=== PATIENT | male | born 1945 | race Caucasian/White ===

== ENCOUNTER → 2017-10-04 | Outpatient (CLI) | payer MEDICARE, OTHER ==
[~2017-10-04] MED LIST: ALPR.5 PO; ASPI325EC PO; CIPRSO OS; CLOP75 PO; HYDACE5 PO; Norco 5-325 Ta1 EACH PO; PANT20 PO; PROP10 PO; ROSU10TA PO
== END ==
LOC: LAB SHORT 07:55 → LAB 07:55
DX: D48.5 Neoplasm of uncertain behavior of skin (principal)
CPT/HCPCS: 88305

== ENCOUNTER 2018-12-21 15:04 | Emergency (ER) | payer MEDICARE, OTHER ==
[~2018-12-21] VITALS: Ht 177.8 cm; Wt 81.7 kg
== END 2018-12-21 17:15 | disposition home or self-care (01) ==
LOC: ER 15:04
DX: T83.091A Other mechanical complication of indwelling urethral catheter, initial encounter (principal); Z91.010 Allergy to peanuts; Z88.8 Allergy status to other drugs, medicaments and biological substances; Z79.899 Other long term (current) drug therapy; Z79.82 Long term (current) use of aspirin
CPT/HCPCS: 51798; 99283-25

== ENCOUNTER 2019-07-20 22:01 | Observation (INO) | payer MEDICARE, OTHER ==
[~2019-07-20] VITALS: Ht 177.8 cm; Wt 87.0 kg
[~2019-07-20 22:01] MED LIST changes: -ACET325 PO; -AMOCLA875 PO; -CENTRUM SILVER1 EAC2 PO; -CO Q10200 MG PO; -DOCU100 PO; -Florastor250 MG PO; -IBUP600 PO; -MELATONIN5 M1 PO; -MIRALAX17 GM PO; -Metamucil0.52 GM PO; -THERA-D2000 UNIT PO; -[UNRECOGNIZED DRUG - OTHER] PO
--- NOTE | 2019-07-20 23:49 | NUR ---
transfer report from Keila CHANG in ER on PT being admitted with lt hand cat bite . Bit by own cat per report and has edema redness despite iv antibiotic and oral antibiotic one dose. Await admission of OBS PT.
[2019-07-21] MEDS ORDERED: AMOCLA875 PO (00:31)
[2019-07-21] MEDS ORDERED: IBUP600 PO (00:32)
[2019-07-21] MEDS ORDERED: MIRALAX17 GM PO (00:33)
[2019-07-21] MEDS ORDERED: Metamucil0.52 GM PO (00:34)
[2019-07-21] MEDS ORDERED: [UNRECOGNIZED DRUG - OTHER] PO (00:36)
[2019-07-21] MEDS ORDERED: PANT20 PO (00:38)
[2019-07-21] MEDS ORDERED: MELATONIN5 M1 PO (00:39)
[2019-07-21] MEDS ORDERED: CENTRUM SILVER1 EAC2 PO (00:51)
[2019-07-21] MEDS ORDERED: THERA-D2000 UNIT PO (00:53)
[2019-07-21] MEDS ORDERED: DOCU100 PO (00:55)
[2019-07-21] MEDS ORDERED: CO Q10200 MG PO (01:00)
[2019-07-21 05:28] LABS: BASOPHILS ABSOLUTE AUTO 0.05 K/mm3 (0.00-0.23); BASOPHILS PERCENT AUTO 1 % (0-2); EOSINOPHILS ABSOLUTE AUTO 0.24 K/mm3 (0.00-0.68); EOSINOPHILS PERCENT AUTO 2 % (0-6); IMMATURE GRAN ABSOLUTE AUTO 0.04 K/mm3 (0.00-0.10); IMMATURE GRAN PERCENT AUTO 0 % (0-1); LYMPHOCYTES ABSOLUTE AUTO 1.95 K/mm3 (0.84-5.20); LYMPHOCYTES PERCENT AUTO 18 % (21-46); MONOCYTES ABSOLUTE AUTO 0.96 K/mm3 (0.16-1.47); MONOCYTES PERCENT AUTO 9 % (4-13); Mean Corpuscular HGB 33.5 pg (26.0-34.0); Mean Corpuscular HGB Conc 33.3 g/dL (31.5-36.5); Mean Platelet Volume 9.5 fL (9.1-12.4); NEUTROPHILS ABSOLUTE AUTO 7.59 K/mm3 (1.96-9.15); NEUTROPHILS PERCENT AUTO 70 % (41-73); Platelet Count 188 K/mm3 (150-400); RDW Coefficient Variation 11.9 % (11.7-14.2); RDW Standard Deviation 43.5 fL (35.1-46.3); Red Blood Cell Count 3.58 M/mm3 (4.30-5.90); White Blood Cell Count 10.83 K/mm3 (4.00-11.30)
[2019-07-21 05:33] LABS: Mean Corpuscular Volume 101 fL (80-100)
--- NOTE | 2019-07-21 08:13 | NUR ---
PT admitted with cat bite cellulitis lt hand and started on IV ABX at urgent care and sent home on augmentin which was taken around noon. PT admitted to square dancing with injured lt hand for 2.5 hours but then noted red streak running up lt arm. Redness diminishing and slight decreased edema this AM after zosyn abx given. PT encouraged to keep lt ue elevated above heart level
--- NOTE | 2019-07-21 13:59 | NUR ---
SPOKE TO DR BOBO AT 1350, AFTER HE HAD VISITED WITH PATIENT. ASKED FOR ORDERS OF BOWEL CARE PER PATIENT REQUEST. VERBAL ORDERS OBTAINED AND ENTERED TO EM[facility].
--- NOTE | 2019-07-21 15:54 | NUR ---
SHIFT SUMMARY THE PATIENT HAS HAD AN UNEVENTFUL SHIFT. DENIES PAIN OR DISCOMFORT. VITALS REMAIN STABLE. CALLS FOR STAFF ASSIST APPROPRIATELY. CONTINUES ON IV ABX WITHOUT S/SX OF ADVERSE REACTIONS NOTED OR REPORTED. CONDITION OF LEFT HAND HAS NOT WORSENED. NO ACUTE CHANGES TO REPORT ON AT THIS TIME. WILL CONTINUE TO MONITOR AND PROVIDE CARE NEEDED.
--- NOTE | 2019-07-21 22:50 | NUR ---
PT continues with mild lt forearm pink streak from catbite punctures to lt hand and lt thumb. PT has been elevating lt arm and hand above heart level more consistantly. Minimal pain lt hand some tenderness with pressure to lt thumb area. Denies need for pain med. Bites are dry with small scabs present. Decreased redness and warmth to area. Bowel care given at HS for chronic constipation. no fevers noted continues on IV antibiotics for cellulitis.
--- NOTE | 2019-07-22 03:34 | NUR ---
bedside report to Rashida RN who assumed care of PT. LT arm red streak greatly diminished from admission. PT denies acute pain. Alcohol gel used at bedside and applied after PT touching cat bite puncture site lt thumb area. Most of lt hand edema gone CMS good. Cellulitis and animal bite PT education provided.
[2019-07-22 04:40] LABS: BASOPHILS ABSOLUTE AUTO 0.04 K/mm3 (0.00-0.23); BASOPHILS PERCENT AUTO 0 % (0-2); EOSINOPHILS ABSOLUTE AUTO 0.28 K/mm3 (0.00-0.68); EOSINOPHILS PERCENT AUTO 3 % (0-6); Hematocrit 35.6 % (37.0-53.0); IMMATURE GRAN ABSOLUTE AUTO 0.03 K/mm3 (0.00-0.10); IMMATURE GRAN PERCENT AUTO 0 % (0-1); LYMPHOCYTES ABSOLUTE AUTO 2.15 K/mm3 (0.84-5.20); LYMPHOCYTES PERCENT AUTO 22 % (21-46); MONOCYTES ABSOLUTE AUTO 0.88 K/mm3 (0.16-1.47); MONOCYTES PERCENT AUTO 9 % (4-13); Mean Corpuscular HGB 32.8 pg (26.0-34.0); Mean Corpuscular HGB Conc 33.7 g/dL (31.5-36.5); Mean Platelet Volume 9.2 fL (9.1-12.4); NEUTROPHILS ABSOLUTE AUTO 6.55 K/mm3 (1.96-9.15); NEUTROPHILS PERCENT AUTO 66 % (41-73); Platelet Count 203 K/mm3 (150-400); RDW Coefficient Variation 11.9 % (11.7-14.2); RDW Standard Deviation 42.5 fL (35.1-46.3); Red Blood Cell Count 3.66 M/mm3 (4.30-5.90); White Blood Cell Count 9.93 K/mm3 (4.00-11.30)
[2019-07-22 04:44] LABS: Mean Corpuscular Volume 97 fL (80-100)
[2019-07-22 05:06] LABS: Albumin, Blood 3.1 g/dL (3.4-5.0); Albumin/Globulin Ratio 0.9 (0.8-1.8); Bilirubin, Total 0.4 mg/dL (0.1-1.0); Bun/Creatinine Ratio 18.3 (12.0-20.0); Calcium, Blood 8.4 mg/dL (8.5-10.1); Creatinine, Blood 1.26 mg/dL (0.60-1.20); Globulin, Blood 3.6 g/dL (2.2-4.0); Total Protein, Blood 6.7 g/dL (6.4-8.2)
[2019-07-22] MEDS ORDERED: ACET325 PO (10:39)
[2019-07-22] MEDS ORDERED: Florastor250 MG PO (10:41)
--- NOTE | 2019-07-22 11:19 | NUR ---
DISCHARGE SUMMARY PT DENIES PAIN, HAND MUCH LESS SWOLLEN, REDNESS RESOLVED. PIV REMOVED, PAPERWORK GONE OVER, MEDS FAXED TO [facility]. PT DECLINES US TO MAKE PCP APPOINTMENT, HE WANTS TO MAKE IT HIMSELF WHEN HE GETS HOME AND HAS HIS SCHEDULE. WILL PICK HIM UP SHORTLY.
== END 2019-07-22 11:30 | disposition home or self-care (01) ==
LOC: ER 22:01 → MEDS 22:02 → ENPENDDIS 07-22 09:49 → MEDS 07-22 11:30
PROVIDERS: Family Medicine; ADMIT Hospitalist
DX: S41.152A Open bite of left upper arm, initial encounter (principal); L03.114 Cellulitis of left upper limb; I25.10 Atherosclerotic heart disease of native coronary artery without angina pectoris; Z95.5 Presence of coronary angioplasty implant and graft; Z91.010 Allergy to peanuts; Z91.09 Other allergy status, other than to drugs and biological substances; Z88.2 Allergy status to sulfonamides; Z79.02 Long term (current) use of antithrombotics/antiplatelets; W55.01XA Bitten by cat, initial encounter; Z23 Encounter for immunization
CPT/HCPCS: 36415; 73120; 80053; 85025; 87040; 90686; 96365; 96366; 96372; 96376; 99284-25; G0008; G0378; J1650; J2543; J7050

== ENCOUNTER → 2019-07-20 | Outpatient (CLI) | payer MEDICARE, OTHER ==
[~2019-07-20] MED LIST changes: +ACET325 PO; +AMOCLA875 PO; -ASPI325EC PO; +Aspir 8181 MG; +CENTRUM SILVER1 EAC2 PO; +CO Q10200 MG PO; +DOCU100 PO; +Florastor250 MG PO; +IBUP600 PO; +MELATONIN5 M1 PO; +MIRALAX17 GM PO; +Metamucil0.52 GM PO; +THERA-D2000 UNIT PO; +[UNRECOGNIZED DRUG - OTHER] PO
[2019-07-20 12:02] LABS: BASOPHILS ABSOLUTE AUTO 0.06 K/mm3 (0.00-0.23); BASOPHILS PERCENT AUTO 0 % (0-2); EOSINOPHILS ABSOLUTE AUTO 0.06 K/mm3 (0.00-0.68); EOSINOPHILS PERCENT AUTO 0 % (0-6); Hematocrit 42.8 % (37.0-53.0); Hemoglobin 14.6 g/dL (13.5-17.5); IMMATURE GRAN ABSOLUTE AUTO 0.09 K/mm3 (0.00-0.10); IMMATURE GRAN PERCENT AUTO 1 % (0-1); LYMPHOCYTES ABSOLUTE AUTO 1.42 K/mm3 (0.84-5.20); LYMPHOCYTES PERCENT AUTO 9 % (21-46); MONOCYTES ABSOLUTE AUTO 0.94 K/mm3 (0.16-1.47); MONOCYTES PERCENT AUTO 6 % (4-13); Mean Corpuscular HGB 32.8 pg (26.0-34.0); Mean Corpuscular HGB Conc 34.1 g/dL (31.5-36.5); Mean Corpuscular Volume 96 fL (80-100); Mean Platelet Volume 9.4 fL (9.1-12.4); NEUTROPHILS ABSOLUTE AUTO 12.82 K/mm3 (1.96-9.15); NEUTROPHILS PERCENT AUTO 83 % (41-73); Platelet Count 274 K/mm3 (150-400); RDW Coefficient Variation 11.9 % (11.7-14.2); RDW Standard Deviation 41.5 fL (35.1-46.3); Red Blood Cell Count 4.45 M/mm3 (4.30-5.90); White Blood Cell Count 15.39 K/mm3 (4.00-11.30)
[2019-07-20 12:15] LABS: Alanine Aminotransfer (ALT/SGP 32 U/L (12-78); Albumin, Blood 4.1 g/dL (3.4-5.0); Albumin/Globulin Ratio 1.1 (0.8-1.8); Alk Phos 85 U/L (50-136); Anion Gap 8 mmol/L (6-16); Aspartate Aminotrans (AST/SGOT 23 U/L (12-37); Bilirubin, Total 0.6 mg/dL (0.1-1.0); Blood Urea Nitrogen 26 mg/dL (8-24); CO2, Blood 27 mmol/L (21-32); Calcium, Blood 8.8 mg/dL (8.5-10.1); Chloride, Blood 105 mmol/L (98-108); Creatinine, Blood 1.18 mg/dL (0.60-1.20); Globulin, Blood 3.9 g/dL (2.2-4.0); Glomerular Filtration Rate >60 (60-); Glucose, Blood 134 mg/dL (70-99); Potassium, Blood 4.1 mmol/L (3.5-5.5); Sodium, Blood 140 mmol/L (136-145)
== END ==
LOC: LAB 11:15 → LAB SHORT 11:15
PROVIDERS: Physician Assistant
DX: R10.9 Unspecified abdominal pain (principal); R53.83 Other fatigue
CPT/HCPCS: 80053; 85025

== ENCOUNTER → 2019-08-30 | Outpatient (CLI) | payer MEDICARE, OTHER ==
[~2019-08-30] MED LIST changes: +ACET325 PO; +AMOCLA875 PO; +CENTRUM SILVER1 EAC2 PO; +CO Q10200 MG PO; +DOCU100 PO; +Florastor250 MG PO; +IBUP600 PO; +MELATONIN5 M1 PO; +MIRALAX17 GM PO; +Metamucil0.52 GM PO; +THERA-D2000 UNIT PO; +[UNRECOGNIZED DRUG - OTHER] PO
[2019-08-30 12:10] LABS: BASOPHILS ABSOLUTE AUTO 0.02 K/mm3 (0.00-0.23); BASOPHILS PERCENT AUTO 0 % (0-2); EOSINOPHILS ABSOLUTE AUTO 0.03 K/mm3 (0.00-0.68); EOSINOPHILS PERCENT AUTO 1 % (0-6); Hematocrit 40.1 % (37.0-53.0); Hemoglobin 14.3 g/dL (13.5-17.5); IMMATURE GRAN ABSOLUTE AUTO 0.02 K/mm3 (0.00-0.10); IMMATURE GRAN PERCENT AUTO 0 % (0-1); LYMPHOCYTES ABSOLUTE AUTO 0.99 K/mm3 (0.84-5.20); LYMPHOCYTES PERCENT AUTO 19 % (21-46); MONOCYTES ABSOLUTE AUTO 0.69 K/mm3 (0.16-1.47); MONOCYTES PERCENT AUTO 13 % (4-13); Mean Corpuscular HGB 33.8 pg (26.0-34.0); Mean Corpuscular HGB Conc 35.7 g/dL (31.5-36.5); Mean Corpuscular Volume 95 fL (80-100); Mean Platelet Volume 9.2 fL (9.1-12.4); NEUTROPHILS ABSOLUTE AUTO 3.47 K/mm3 (1.96-9.15); NEUTROPHILS PERCENT AUTO 66 % (41-73); Platelet Count 211 K/mm3 (150-400); RDW Standard Deviation 41.2 fL (35.1-46.3); Red Blood Cell Count 4.23 M/mm3 (4.30-5.90); White Blood Cell Count 5.22 K/mm3 (4.00-11.30)
[2019-08-30 12:27] LABS: Alanine Aminotransfer (ALT/SGP 33 U/L (12-78); Albumin, Blood 3.8 g/dL (3.4-5.0); Albumin/Globulin Ratio 1.1 (0.8-1.8); Alk Phos 79 U/L (40-126); Anion Gap 11 mmol/L (6-16); Aspartate Aminotrans (AST/SGOT 32 U/L (12-37); Bilirubin, Total 0.4 mg/dL (0.1-1.0); Blood Urea Nitrogen 17 mg/dL (8-24); Bun/Creatinine Ratio 14.4 (12.0-20.0); CO2, Blood 25 mmol/L (21-32); Calcium, Blood 8.6 mg/dL (8.5-10.1); Chloride, Blood 100 mmol/L (98-108); Creatinine, Blood 1.18 mg/dL (0.60-1.20); Globulin, Blood 3.6 g/dL (2.2-4.0); Glomerular Filtration Rate >60 (60-); Glucose, Blood 100 mg/dL (70-99); Potassium, Blood 4.1 mmol/L (3.5-5.5); Sodium, Blood 136 mmol/L (136-145); Total Protein, Blood 7.4 g/dL (6.4-8.2); Troponin I <0.017 ng/mL (0.000-0.040)
== END ==
LOC: LAB SHORT 12:05 → LAB EV 12:05
PROVIDERS: Nurse Practitioner
DX: R10.9 Unspecified abdominal pain (principal)
CPT/HCPCS: 80053; 83690; 84484; 85025

== ENCOUNTER 2020-10-24 06:28 | Emergency (ER) | payer OTHER ==
[~2020-10-24] VITALS: Ht 177.8 cm; Wt 79.4 kg
[2021-01-04] MEDS ORDERED: Robaxin750 MG PO (11:49)
== END 2020-10-24 08:09 | disposition home or self-care (01) ==
LOC: ER 06:28
DX: R04.0 Epistaxis (principal); Z79.82 Long term (current) use of aspirin; Z79.899 Other long term (current) drug therapy; Z79.02 Long term (current) use of antithrombotics/antiplatelets; Z91.018 Allergy to other foods; Z91.09 Other allergy status, other than to drugs and biological substances
CPT/HCPCS: 30903; 99283-25

== ENCOUNTER 2020-10-25 10:45 | Emergency (ER) | payer OTHER ==
[~2020-10-25] VITALS: Ht 177.8 cm; Wt 79.4 kg
[2021-01-04] MEDS ORDERED: Robaxin750 MG PO (11:49)
== END 2020-10-25 11:12 | disposition home or self-care (01) ==
LOC: ER 10:45
DX: R04.0 Epistaxis (principal)
CPT/HCPCS: 99282

== ENCOUNTER 2021-04-11 10:09 | Emergency (ER) | payer OTHER ==
[~2021-04-11] VITALS: Ht 177.8 cm; Wt 81.7 kg
[~2021-04-11 10:09] MED LIST changes: +Robaxin750 MG PO
[2021-04-11 11:28] LABS: BASOPHILS ABSOLUTE AUTO 0.05 K/mm3 (0.00-0.23); BASOPHILS PERCENT AUTO 1 % (0-2); EOSINOPHILS ABSOLUTE AUTO 0.19 K/mm3 (0.00-0.68); EOSINOPHILS PERCENT AUTO 3 % (0-6); Hemoglobin 12.3 g/dL (13.5-17.5); IMMATURE GRAN ABSOLUTE AUTO 0.02 K/mm3 (0.00-0.10); IMMATURE GRAN PERCENT AUTO 0 % (0-1); LYMPHOCYTES ABSOLUTE AUTO 1.52 K/mm3 (0.84-5.20); LYMPHOCYTES PERCENT AUTO 26 % (21-46); MONOCYTES ABSOLUTE AUTO 0.52 K/mm3 (0.16-1.47); MONOCYTES PERCENT AUTO 9 % (4-13); Mean Corpuscular HGB 30.4 pg (26.0-34.0); Mean Corpuscular HGB Conc 32.4 g/dL (31.5-36.5); Mean Corpuscular Volume 94 fL (80-100); Mean Platelet Volume 9.4 fL (9.1-12.4); NEUTROPHILS ABSOLUTE AUTO 3.59 K/mm3 (1.96-9.15); NEUTROPHILS PERCENT AUTO 61 % (41-73); Platelet Count 248 K/mm3 (150-400); RDW Coefficient Variation 14.4 % (11.7-14.2); RDW Standard Deviation 49.8 fL (35.1-46.3); Red Blood Cell Count 4.05 M/mm3 (4.30-5.90); White Blood Cell Count 5.89 K/mm3 (4.00-11.30)
[2021-04-11] MEDS ORDERED: ROSU5 PO (11:38)
[2021-04-11 11:46] LABS: Albumin, Blood 3.5 g/dL (3.4-5.0); Bilirubin, Total 0.4 mg/dL (0.1-1.0); Bun/Creatinine Ratio 18.3 (12.0-20.0); Calcium, Blood 8.6 mg/dL (8.5-10.1); Creatinine, Blood 1.26 mg/dL (0.60-1.20); Globulin, Blood 3.5 g/dL (2.2-4.0); Potassium, Blood 4.1 mmol/L (3.5-5.5)
[2021-04-11] MEDS ORDERED: CLOP75 PO (13:50)
[2021-04-11] MEDS ORDERED: ROSU10TA PO (13:52)
== END 2021-04-11 14:04 | disposition home or self-care (01) ==
LOC: ER 10:09
PROVIDERS: Physician Assistant
DX: R53.1 Weakness (principal); I25.10 Atherosclerotic heart disease of native coronary artery without angina pectoris; I65.22 Occlusion and stenosis of left carotid artery; I65.02 Occlusion and stenosis of left vertebral artery; Z91.010 Allergy to peanuts; Z88.8 Allergy status to other drugs, medicaments and biological substances; Z91.048 Other nonmedicinal substance allergy status; Z79.82 Long term (current) use of aspirin; Z79.02 Long term (current) use of antithrombotics/antiplatelets; Z79.899 Other long term (current) drug therapy
CPT/HCPCS: 36415; 70450; 70496; 70498; 80053; 82947; 85025; 93005; 93010; 99285-25; A9270; Q9967

== ENCOUNTER 2021-04-15 13:22 | Emergency (ER) | payer OTHER ==
[~2021-04-15] VITALS: Ht 177.8 cm; Wt 81.7 kg
[~2021-04-15 13:22] MED LIST changes: +ROSU5 PO
[2021-04-15 13:58] LABS: BASOPHILS ABSOLUTE AUTO 0.06 K/mm3 (0.00-0.23); BASOPHILS PERCENT AUTO 1 % (0-2); EOSINOPHILS ABSOLUTE AUTO 0.23 K/mm3 (0.00-0.68); EOSINOPHILS PERCENT AUTO 3 % (0-6); Hematocrit 38.5 % (37.0-53.0); Hemoglobin 12.7 g/dL (13.5-17.5); IMMATURE GRAN ABSOLUTE AUTO 0.02 K/mm3 (0.00-0.10); IMMATURE GRAN PERCENT AUTO 0 % (0-1); LYMPHOCYTES ABSOLUTE AUTO 1.97 K/mm3 (0.84-5.20); LYMPHOCYTES PERCENT AUTO 27 % (21-46); MONOCYTES ABSOLUTE AUTO 0.64 K/mm3 (0.16-1.47); MONOCYTES PERCENT AUTO 9 % (4-13); Mean Corpuscular HGB 30.9 pg (26.0-34.0); Mean Corpuscular Volume 94 fL (80-100); Mean Platelet Volume 9.6 fL (9.1-12.4); NEUTROPHILS PERCENT AUTO 60 % (41-73); Platelet Count 243 K/mm3 (150-400); RDW Coefficient Variation 14.5 % (11.7-14.2); RDW Standard Deviation 49.7 fL (35.1-46.3); Red Blood Cell Count 4.11 M/mm3 (4.30-5.90); White Blood Cell Count 7.32 K/mm3 (4.00-11.30)
[2021-04-15 14:17] LABS: Albumin, Blood 3.5 g/dL (3.4-5.0); Albumin/Globulin Ratio 0.9 (0.8-1.8); Bilirubin, Total 0.4 mg/dL (0.1-1.0); Bun/Creatinine Ratio 19.8 (12.0-20.0); Calcium, Blood 8.1 mg/dL (8.5-10.1); Creatinine, Blood 1.26 mg/dL (0.60-1.20); Globulin, Blood 3.8 g/dL (2.2-4.0); Potassium, Blood 4.4 mmol/L (3.5-5.5); Total Protein, Blood 7.3 g/dL (6.4-8.2)
== END 2021-04-15 16:44 | disposition home or self-care (01) ==
LOC: ER 13:22
PROVIDERS: Emergency Medicine
DX: G45.9 Transient cerebral ischemic attack, unspecified (principal); Z91.09 Other allergy status, other than to drugs and biological substances; Z88.8 Allergy status to other drugs, medicaments and biological substances; Z91.010 Allergy to peanuts; Z79.82 Long term (current) use of aspirin
CPT/HCPCS: 80053; 85025; 93005; 93010; 99285-25

== ENCOUNTER 2021-10-03 18:31 | Emergency (ER) | payer OTHER ==
[~2021-10-03] VITALS: Ht 177.8 cm; Wt 81.7 kg
[2021-10-03] MEDS ORDERED: FAMO20 PO (20:26)
[2021-10-03] MEDS ORDERED: TURMERIC500 M2 (20:27)
[2021-10-03] MEDS ORDERED: FISH OIL 1,2001 EAC7 (20:27)
[2021-10-03] MEDS ORDERED: MAGNESIUM OXID500 MG (20:27)
[2021-10-03] MEDS ORDERED: ZINC15 (20:27)
== END 2021-10-03 21:20 | disposition home or self-care (01) ==
LOC: ER 18:31
DX: K59.09 Other constipation (principal); I25.10 Atherosclerotic heart disease of native coronary artery without angina pectoris; Z86.73 Personal history of transient ischemic attack (TIA), and cerebral infarction without residual deficits; Z91.010 Allergy to peanuts; Z91.048 Other nonmedicinal substance allergy status; Z88.8 Allergy status to other drugs, medicaments and biological substances; Z79.899 Other long term (current) drug therapy
CPT/HCPCS: 74019; 99283-25; A9270

== ENCOUNTER → 2022-04-11 | Outpatient (CLI) | payer OTHER ==
[~2022-04-11] MED LIST changes: +FAMO20 PO; +FISH OIL 1,2001 EAC7; +MAGNESIUM OXID500 MG; +TURMERIC500 M2; +ZINC15
[2022-04-11 13:34] LABS: BASOPHILS ABSOLUTE AUTO 0.04 K/mm3 (0.00-0.23); BASOPHILS PERCENT AUTO 1 % (0-2); EOSINOPHILS ABSOLUTE AUTO 0.22 K/mm3 (0.00-0.68); EOSINOPHILS PERCENT AUTO 4 % (0-6); Hematocrit 40.5 % (37.0-53.0); Hemoglobin 13.7 g/dL (13.5-17.5); IMMATURE GRAN ABSOLUTE AUTO 0.02 K/mm3 (0.00-0.10); IMMATURE GRAN PERCENT AUTO 0 % (0-1); LYMPHOCYTES ABSOLUTE AUTO 1.37 K/mm3 (0.84-5.20); LYMPHOCYTES PERCENT AUTO 22 % (21-46); MONOCYTES ABSOLUTE AUTO 0.37 K/mm3 (0.16-1.47); MONOCYTES PERCENT AUTO 6 % (4-13); Mean Corpuscular HGB 32.9 pg (26.0-34.0); Mean Corpuscular HGB Conc 33.8 g/dL (31.5-36.5); Mean Corpuscular Volume 97 fL (80-100); Mean Platelet Volume 9.5 fL (9.1-12.4); NEUTROPHILS ABSOLUTE AUTO 4.28 K/mm3 (1.96-9.15); NEUTROPHILS PERCENT AUTO 68 % (41-73); Platelet Count 264 K/mm3 (150-400); RDW Coefficient Variation 11.8 % (11.7-14.2); RDW Standard Deviation 41.8 fL (35.1-46.3); Red Blood Cell Count 4.17 M/mm3 (4.30-5.90)
[2022-04-11 14:13] LABS: Free Thyroxine 1.01 ng/dL (0.70-1.60); LDL/HDL RATIO 1.2; PSA, Free 0.159 ng/mL; Prostate Specific Antigen 0.376 ng/mL (0.000-4.000)
[2022-04-11 14:14] LABS: Alanine Aminotransfer (ALT/SGP 32 U/L (12-78); Albumin, Blood 3.6 g/dL (3.4-5.0); Albumin/Globulin Ratio 0.9 (0.8-1.8); Alk Phos 72 U/L (50-136); Anion Gap 7 mmol/L (6-16); Aspartate Aminotrans (AST/SGOT 28 U/L (12-37); Bilirubin, Total 0.4 mg/dL (0.1-1.0); Blood Urea Nitrogen 26 mg/dL (8-24); Bun/Creatinine Ratio 21.7 (12.0-20.0); CHOL/HDL RATIO 2.5; CO2, Blood 27 mmol/L (21-32); Calcium, Blood 8.8 mg/dL (8.5-10.1); Chloride, Blood 107 mmol/L (98-108); Cholesterol 125 mg/dL (50-200); Globulin, Blood 3.8 g/dL (2.2-4.0); Glomerular Filtration Rate 62 (60-); Glucose, Blood 118 mg/dL (70-99); HDL Cholesterol 50 mg/dL (>39); Low Density Lipoprotein Chol 61 mg/dL (0-110); PSA, %Free 42.3 %; Potassium, Blood 4.2 mmol/L (3.5-5.5); Sodium, Blood 141 mmol/L (136-145); Total Protein, Blood 7.4 g/dL (6.4-8.2); Triglycerides 69 mg/dL (30-160); Very Low Density Lipoprot Chol 13 mg/dL (6-32)
== END ==
LOC: LAB 11:15 → LAB SHORT 11:15
PROVIDERS: Family Medicine
DX: R73.9 Hyperglycemia, unspecified (principal); E78.5 Hyperlipidemia, unspecified; N40.0 Benign prostatic hyperplasia without lower urinary tract symptoms
CPT/HCPCS: 80053; 80061; 83036; 84153; 84154; 84439; 84443; 85025

== ENCOUNTER 2023-01-02 12:44 | Emergency (ER) | payer OTHER ==
[~2023-01-02] VITALS: Ht 177.8 cm; Wt 81.7 kg
[2023-01-02 13:05] VITALS: BP 146/68
== END 2023-01-02 17:17 | disposition home or self-care (01) ==
LOC: ER 12:44
DX: K59.00 Constipation, unspecified (principal); Z88.8 Allergy status to other drugs, medicaments and biological substances; Z91.010 Allergy to peanuts; Z91.018 Allergy to other foods; Z79.899 Other long term (current) drug therapy; Z79.82 Long term (current) use of aspirin; I25.10 Atherosclerotic heart disease of native coronary artery without angina pectoris
CPT/HCPCS: 74018

== ENCOUNTER 2024-03-21 13:12 | Day surgery (SDC) | payer OTHER ==
[~2024-03-21] VITALS: Ht 177.8 cm; Wt 81.6 kg
[~2024-03-21 13:12] MED LIST changes: +Balanced Salt Epinephrine Irrigation Solution 500 mL IR SCH; +Lidocaine HCl/Pf 1% 5 ML VIAL XX SCH; +Moxifloxacin HCL 0.5 MG/0.1 ML 0.4MLSYR RIGHTEYE SCH; +NS 500 ML IV ONE; +PHENYLEPHRINE\\TROPICAMIDE\\TETRACAINE OPHTHALMIC DILATING SOLN RIGHTEYE PRN; +Povidone-Iodine 450 DROP/30 ML Solution RIGHTEYE SCH; +Triamcinolone Inj Susp 40 MG / ML 1ML Vial INJ SCH; +Triamcinolone Inj Susp 40 MG / ML 1ML Vial ONE
--- NOTE | 2024-03-21 13:57 | NUR ---
03[facility]21/[address] [id number]
[2024-03-21] MEDS ORDERED: DILTIAZEM 24HR120 M4 PO (14:01)
[2024-03-21] MEDS ORDERED: TAMSULOSIN HCL0.4 M1 PO (14:01)
[2024-03-21] MEDS ORDERED: NS 500 ML IV ONE (14:09)
[2024-03-21] MEDS ORDERED: Midazolam HCl 1MG / ML 2ML Vial ONE (14:34)
[2024-03-21 15:39] VITALS: BP 116/71
== END 2024-03-21 15:22 | disposition home or self-care (01) ==
LOC: ORSCSDS 13:12
PROVIDERS: Ophthalmology
PROC: 08RJ3JZ Replacement of Right Lens with Synthetic Substitute, Percutaneous Approach (ICD-10-PCS; principal; 2024-03-21 14:30)
DX: H25.813 Combined forms of age-related cataract, bilateral (principal); H25.11 Age-related nuclear cataract, right eye; I10 Essential (primary) hypertension; I25.10 Atherosclerotic heart disease of native coronary artery without angina pectoris; I25.2 Old myocardial infarction; Z79.899 Other long term (current) drug therapy
CPT/HCPCS: J2250; J3301; J7040; V2632

== ENCOUNTER 2024-03-28 12:32 | Day surgery (SDC) | payer OTHER ==
[~2024-03-28] VITALS: Ht 177.8 cm; Wt 82.7 kg
[~2024-03-28 12:32] MED LIST changes: +DILTIAZEM 24HR120 M4 PO; +Moxifloxacin HCL 0.5 MG/0.1 ML 0.4MLSYR LEFTEYE SCH; -Moxifloxacin HCL 0.5 MG/0.1 ML 0.4MLSYR RIGHTEYE SCH; +PHENYLEPHRINE\\TROPICAMIDE\\TETRACAINE OPHTHALMIC DILATING SOLN LEFTEYE PRN; -PHENYLEPHRINE\\TROPICAMIDE\\TETRACAINE OPHTHALMIC DILATING SOLN RIGHTEYE PRN; +Phenylephrine Frt 10% Opth (ORSC) ONE; +Povidone-Iodine 450 DROP/30 ML Solution LEFTEYE SCH; -Povidone-Iodine 450 DROP/30 ML Solution RIGHTEYE SCH; +TAMSULOSIN HCL0.4 M1 PO; -Triamcinolone Inj Susp 40 MG / ML 1ML Vial ONE
[2024-03-28] MEDS ORDERED: NS 500 ML IV ONE (12:56)
[2024-03-28] MEDS ORDERED: Inderal 20 mg T20 MG (13:13)
[2024-03-28] MEDS ORDERED: Midazolam HCl 1MG / ML 2ML Vial ONE (13:42)
[2024-03-28 14:11] VITALS: BP 115/58
== END 2024-03-28 14:19 | disposition home or self-care (01) ==
LOC: ORSCSDS 12:32
PROVIDERS: Ophthalmology
PROC: 08RK3JZ Replacement of Left Lens with Synthetic Substitute, Percutaneous Approach (ICD-10-PCS; principal; 2024-03-28 14:30)
DX: H25.812 Combined forms of age-related cataract, left eye (principal); Z96.1 Presence of intraocular lens; I25.10 Atherosclerotic heart disease of native coronary artery without angina pectoris; I10 Essential (primary) hypertension; I21.9 Acute myocardial infarction, unspecified; I25.2 Old myocardial infarction; Z79.899 Other long term (current) drug therapy
CPT/HCPCS: J2250; J7040; V2632

== ENCOUNTER 2024-08-13 06:57 | Day surgery (SDC) | payer OTHER ==
[2024-08-13] VITALS (9 sets, daily range): BP systolic 111–143; BP diastolic 59–75
[~2024-08-13] VITALS: Ht 177.8 cm; Wt 83.5 kg
[~2024-08-13 06:57] MED LIST changes: -Balanced Salt Epinephrine Irrigation Solution 500 mL IR SCH; +Inderal 20 mg T20 MG; -Lidocaine HCl/Pf 1% 5 ML VIAL XX SCH; +MAGNESIUM OXID500 MG PO; -Moxifloxacin HCL 0.5 MG/0.1 ML 0.4MLSYR LEFTEYE SCH; -NS 500 ML IV ONE; -PHENYLEPHRINE\\TROPICAMIDE\\TETRACAINE OPHTHALMIC DILATING SOLN LEFTEYE PRN; -Phenylephrine Frt 10% Opth (ORSC) ONE; -Povidone-Iodine 450 DROP/30 ML Solution LEFTEYE SCH; -Triamcinolone Inj Susp 40 MG / ML 1ML Vial INJ SCH; +UBID10 PO
[2024-08-13] MEDS ORDERED: NS 1,000 ML IV ONE ×2 (07:31→07:46)
[2024-08-13] MEDS ORDERED: Heparin Sodium 1000 Units/ML 10ML MDV ONE ×2 (07:31→07:46)
[2024-08-13] MEDS ORDERED: Verapamil HCL 2.5 MG/ML 2ML Injection ONE (07:31)
[2024-08-13] MEDS ORDERED: NS 250 ML IV ONE (07:31)
[2024-08-13] MEDS ORDERED: Nitroglycerin 2 MG/20 ML BTL ONE (07:32)
[2024-08-13] MEDS ORDERED: FentaNYL Citrate 50 MCG/ML 2 ML Injection ONE (07:51)
[2024-08-13] MEDS ORDERED: Midazolam HCl 1MG / ML 2ML Vial ONE (07:51)
--- NOTE | 2024-08-13 09:25 | NUR ---
PT BACK TO RECOVERY. PT A&O. DR HERNADEZ AT BEDSIDE DISCUSSING PROCEDURE AND FUTURE PLAN OF CARE W/ PT AND FAMILY. RADIAL SITE SOFT AND NON-TENDER PER PT. NO BLEEDING NOTED. PT SITTING UP READING BOOK.
--- NOTE | 2024-08-13 10:25 | NUR ---
RADIAL SITE SOFT AND NON-TENDER PER PT. NO BLEEDING NOTED.
--- NOTE | 2024-08-13 10:45 | NUR ---
2cc removed from tr band. site soft and non-tender per pt. no bleeding noted.
--- NOTE | 2024-08-13 10:53 | NUR ---
tr band fully deflated. no bleeding noted. site soft and non-tender per pt.
--- NOTE | 2024-08-13 12:10 | NUR ---
pt given dc instructions and verbalized understadning. iv out. pt chnaged. radial site soft and non-tender. no bleeding noted. cloth dot and sling applied along with arm board. pt taken to [facility] via [place]. family to drive pt home.
== END 2024-08-13 12:00 | disposition home or self-care (01) ==
LOC: MHTC 06:57
DX: I25.118 Atherosclerotic heart disease of native coronary artery with other forms of angina pectoris (principal); I10 Essential (primary) hypertension; E78.5 Hyperlipidemia, unspecified; I25.2 Old myocardial infarction; Z79.82 Long term (current) use of aspirin; Z79.02 Long term (current) use of antithrombotics/antiplatelets; Z79.899 Other long term (current) drug therapy; Z91.010 Allergy to peanuts; Z91.048 Other nonmedicinal substance allergy status; Z88.8 Allergy status to other drugs, medicaments and biological substances; Z95.5 Presence of coronary angioplasty implant and graft; Z86.73 Personal history of transient ischemic attack (TIA), and cerebral infarction without residual deficits
CPT/HCPCS: 76937; 93458; 99152; 99153; C1769; C1887; C1894; J1644; J2250; J3010; J7030; J7050; Q9967

== ENCOUNTER 2024-11-08 15:18 | Emergency (ER) | payer OTHER ==
[~2024-11-08] VITALS: Ht 177.8 cm; Wt 81.2 kg
[~2024-11-08 15:18] MED LIST changes: +BENZ100A PO; +FURO20 PO
[2024-11-08 16:26] LABS: Albumin, Blood 3.2 g/dL (3.4-5.0); Albumin/Globulin Ratio 0.8 (0.8-1.8); Bilirubin, Total 0.4 mg/dL (0.1-1.0); Bun/Creatinine Ratio 17.6 (12.0-20.0); Calcium, Blood 8.2 mg/dL (8.5-10.1); Creatinine, Blood 1.31 mg/dL (0.60-1.20); Potassium, Blood 4.4 mmol/L (3.5-5.5); Total Protein, Blood 7.2 g/dL (6.4-8.2)
[2024-11-08 17:50] LABS: BASOPHILS ABSOLUTE AUTO 0.07 K/mm3 (0.00-0.23); BASOPHILS PERCENT AUTO 1 % (0-2); EOSINOPHILS ABSOLUTE AUTO 0.14 K/mm3 (0.00-0.68); EOSINOPHILS PERCENT AUTO 1 % (0-6); Hemoglobin 11.4 g/dL (13.5-17.5); IMMATURE GRAN PERCENT AUTO 1 % (0-1); LYMPHOCYTES ABSOLUTE AUTO 1.05 K/mm3 (0.84-5.20); LYMPHOCYTES PERCENT AUTO 9 % (21-46); MONOCYTES ABSOLUTE AUTO 1.22 K/mm3 (0.16-1.47); MONOCYTES PERCENT AUTO 10 % (4-13); Mean Corpuscular HGB 33.3 pg (26.0-34.0); Mean Corpuscular HGB Conc 32.6 g/dL (31.5-36.5); Mean Corpuscular Volume 102 fL (80-100); Mean Platelet Volume 8.4 fL (9.1-12.4); NEUTROPHILS ABSOLUTE AUTO 9.26 K/mm3 (1.96-9.15); NEUTROPHILS PERCENT AUTO 78 % (41-73); Platelet Count 296 K/mm3 (150-400); RDW Coefficient Variation 12.8 % (11.7-14.2); RDW Standard Deviation 47.3 fL (35.1-46.3); Red Blood Cell Count 3.42 M/mm3 (4.30-5.90); White Blood Cell Count 11.84 K/mm3 (4.00-11.30)
[2024-11-08] MEDS ORDERED: Metoprolol Tartrate 25 MG Tab PO ONE (21:55)
[2024-11-08 22:00] VITALS: BP 123/67
== END 2024-11-08 22:44 | disposition home or self-care (01) ==
LOC: ER 15:18
PROVIDERS: Student in an Organized Health Care Education/Training Program
DX: R07.89 Other chest pain (principal); R05.3 Chronic cough; I25.10 Atherosclerotic heart disease of native coronary artery without angina pectoris; Z86.73 Personal history of transient ischemic attack (TIA), and cerebral infarction without residual deficits; Z79.899 Other long term (current) drug therapy; Z88.8 Allergy status to other drugs, medicaments and biological substances; Z95.1 Presence of aortocoronary bypass graft; Z79.82 Long term (current) use of aspirin; Z79.02 Long term (current) use of antithrombotics/antiplatelets
CPT/HCPCS: 71045; 71260; 80053; 84484; 85025; 85379; 93005; 93010; 99285-25; A9270; Q9967